=== PATIENT | male | born 1960 | race Caucasian/White ===

== ENCOUNTER 2022-06-09 10:59 | Emergency (ER) | payer OTHER ==
[2022-06-09 11:52] VITALS: BP 127/84; PULSE 74; RESP 18; TEMP 97.8; BMI 25.5
[2022-06-09] MEDS ORDERED: KETOROLAC TROMETHAMINE 30 MG/1 ML VIAL ONE (13:21)
[2022-06-09] MEDS ORDERED: KETOROLAC TROMETHAMINE 30 MG/1 ML VIAL IM ONE (13:21)
== END 2022-06-09 15:35 | disposition home or self-care (01) ==
LOC: JERFT 10:59
PROC: 3E0233Z Introduction of Anti-inflammatory into Muscle, Percutaneous Approach (ICD-10-PCS; principal; 2022-06-09)
DX: M79.662 Pain in left lower leg (principal)
CPT/HCPCS: 73590-TC-LT-FY; 96372; 99284-25